=== PATIENT | male | born 1965 | race Caucasian/White ===

== ENCOUNTER 2022-05-06 21:38 | Emergency (ER) | payer OTHER ==
[2022-05-06 22:03] VITALS: BP 135/88; PULSE 90; RESP 20; TEMP 98; BMI 29.7
[2022-05-06] MEDS ORDERED: DIPHTH,PERTUSS(ACELL),TET 0.5 ML DISP.SYRIN IM ONE ×2 (22:03)
[2022-05-06] MEDS ORDERED: CEPHALEXIN MONOHYDRATE 500 MG CAPSULE (UD) PO ONE (22:20)
[2022-05-06] MEDS ORDERED: CEPHALEXIN MONOHYDRATE 500 MG CAPSULE (UD) ONE (22:23)
[2022-05-06] MEDS ORDERED: BACITRACIN ZINC 15 GM TUBE TOPICAL OINTMENT ONE (22:29)
[2022-05-06] MEDS ORDERED: BACITRACIN ZINC 15 GM TUBE TOPICAL OINTMENT TP ONE (22:29)
== END 2022-05-06 22:55 | disposition home or self-care (01) ==
LOC: JERFT 21:38
PROC: 3E0234Z Introduction of Serum, Toxoid and Vaccine into Muscle, Percutaneous Approach (ICD-10-PCS; principal; 2022-05-06)
DX: S67.195A Crushing injury of left ring finger, initial encounter (principal); S61.309A Unspecified open wound of unspecified finger with damage to nail, initial encounter; W23.0XXA Caught, crushed, jammed, or pinched between moving objects, initial encounter
CPT/HCPCS: 73140-TC-LT-FY; 90471; 90715; 99284-25

== ENCOUNTER 2023-04-07 08:11 | Emergency (ER) | payer OTHER ==
[2023-04-07 08:19] VITALS: BP 119/81; PULSE 72; RESP 18; TEMP 97.6; BMI 29.8
[2023-04-07] MEDS ORDERED: ACETAMINOPHEN 325 MG TABLET (FP) ONE (09:51)
[2023-04-07] MEDS: ACETAMINOPHEN 500 MG TABLET (FP) PO ONE (09:58)
[2023-04-07] MEDS: IBUPROFEN 600 MG TABLET (FP) PO ONE (10:38)
[2023-04-07] MEDS ORDERED: IBUPROFEN 600 MG TABLET (FP) PO ONE (10:40)
[2023-04-07 10:48] LABS: PH,URINE 5.5 (5.0-8.0); URINE APPEARANCE CLEAR; URINE BILIRUBIN NEGATIVE (NEGATIVE); URINE COLOR YELLOW; URINE GLUCOSE (UA) NEGATIVE (NEGATIVE); URINE KETONE NEGATIVE (NEGATIVE); URINE LEUK ESTERASE NEGATIVE (NEGATIVE); URINE NITRITE NEGATIVE (NEGATIVE); URINE PROTEIN NEGATIVE (NEGATIVE); URINE UROBILINOGEN 0.2 mg/dL (0.2-1.0)
== END 2023-04-07 11:12 | disposition home or self-care (01) ==
LOC: JER 08:11
DX: R10.31 Right lower quadrant pain (principal)
CPT/HCPCS: 81003; 87086; 99283-25

== ENCOUNTER 2023-06-07 03:01 | Observation (INO) | payer OTHER ==
[2023-06-07] MEDS ORDERED: ACETAMINOPHEN INJECTION 100 ML IVPB ONE (03:33)
[2023-06-07] MEDS: SODIUM CHLORIDE 0.9% 500 ML INFUS.BAG IV ONE (03:52)
[2023-06-07] MEDS: ACETAMINOPHEN 1000 MG/100 ML BAG IVPB ONE (03:52)
[2023-06-07] MEDS: ONDANSETRON 4 MG/2 ML VIAL IVPB ONE (03:53)
[2023-06-07 04:15] LABS: HEMOGLOBIN 14.5 GM/dL (11.7-16.9); MCH 29.7 pg (25.7-33.7); MCHC 33.6 g/dl (32.0-35.9); MEAN CELL VOLUME 88.3 fl (80-96); MEAN PLT VOLUME 9.3 fl (7.5-11.1); PLATELET COUNT 210 10^3/uL (134-434); RBC 4.87 M/mm3 (4.00-5.60); RDW 13.5 % (11.9-15.9); WHITE BLOOD COUNT 20.8 K/mm3 (4.0-10.0)
[2023-06-07 04:16] LABS: VENOUS O2 SATURATION 53.3 % (70-80); VENOUS PCO2 50.3 mmHg (38-52); VENOUS PH 7.312 (7.310-7.410)
[2023-06-07 04:18] LABS: PHENCYCLIDINE,URINE NEGATIVE (NEGATIVE); URINE AMPHETAMINES NEGATIVE (NEGATIVE); URINE BENZODIAZEPINES NEGATIVE (NEGATIVE)
[2023-06-07 04:19] LABS: COCAINE, UR NEGATIVE (NEGATIVE); OPIATES, URI NEGATIVE (NEGATIVE); URINE BARBITURATES NEGATIVE (NEGATIVE)
[2023-06-07 04:21] LABS: METHADONE, UR POSITIVE (NEGATIVE)
[2023-06-07 04:37] LABS: CHLORIDE 106 mmol/L (98-107); POTASSIUM 3.5 mmol/L (3.5-5.1); SODIUM 137 mmol/L (136-145)
[2023-06-07 04:39] LABS: CALCIUM 9.5 mg/dL (8.5-10.1)
[2023-06-07 04:40] LABS: ALBUMIN 3.9 g/dl (3.4-5.0); ANION GAP 4 mmol/L (4-13); BLOOD UREA NITROGEN 18.1 mg/dL (7-18); CO2 28 mmol/L (21-32); GLUCOSE,RANDOM 104 mg/dL (74-106); MAGNESIUM 2.1 mg/dL (1.8-2.4)
[2023-06-07 04:43] LABS: CREATININE 1.1 mg/dL (0.55-1.3); SGOT/AST 9 U/L (15-37); SGPT/ALT 17 U/L (13-61)
[2023-06-07 04:44] LABS: BILIRUBIN,TOTAL 0.4 mg/dL (0.2-1); TOT PROT 6.6 g/dl (6.4-8.2)
[2023-06-07 04:46] LABS: ALK PHOS 89 U/L (45-117)
[2023-06-07 06:19] LABS: ANISOCYTOSIS 2+; MACROCYTOSIS 0
[2023-06-07 08:56] LABS: URINE APPEARANCE CLEAR; URINE BILIRUBIN NEGATIVE (NEGATIVE); URINE COLOR YELLOW; URINE GLUCOSE (UA) 1+ (NEGATIVE); URINE KETONE 3+ (NEGATIVE); URINE LEUK ESTERASE NEGATIVE (NEGATIVE); URINE NITRITE NEGATIVE (NEGATIVE); URINE PROTEIN NEGATIVE (NEGATIVE); URINE UROBILINOGEN 0.2 mg/dL (0.2-1.0)
[2023-06-07] MEDS: SODIUM CHLORIDE 1,000 ML IV SCH (10:52)
[2023-06-07] MEDS: PANTOPRAZOLE SODIUM 40 MG VIAL IVPUSH SCH (10:52)
[2023-06-07] MEDS: ONDANSETRON 4 MG/2 ML VIAL IVPUSH PRN (10:52)
[2023-06-07 12:19] VITALS: BMI 28.4
[2023-06-07 16:41] LABS: BASO % 0.3 % (0-2.0); EOS % 0.4 % (0-4.5); HEMOGLOBIN 14.5 GM/dL (11.7-16.9); LYMPH % 9.1 % (8-40); MCH 30.2 pg (25.7-33.7); MCHC 33.8 g/dl (32.0-35.9); MEAN CELL VOLUME 89.2 fl (80-96); MEAN PLT VOLUME 9.4 fl (7.5-11.1); MONO % 6.9 % (3.8-10.2); NEUT % 83.3 % (42.8-82.8); PLATELET COUNT 236 10^3/uL (134-434); RBC 4.82 M/mm3 (4.00-5.60); RDW 13.4 % (11.9-15.9); WHITE BLOOD COUNT 10.7 K/mm3 (4.0-10.0)
[2023-06-08] MEDS: ACETAMINOPHEN 325 MG TABLET (FP) PO PRN (05:44)
[2023-06-08 11:09] VITALS: BP 132/96; PULSE 66; RESP 24; TEMP 98.1
== END 2023-06-08 10:15 | disposition home or self-care (01) ==
LOC: JER 03:01 → JERBED 07:12 → J4W 10:41
PROVIDERS: ADMIT Internal Medicine; ATTEND Internal Medicine
PROC: 3E033NZ Introduction of Analgesics, Hypnotics, Sedatives into Peripheral Vein, Percutaneous Approach (ICD-10-PCS; principal; 2023-06-07)
PROC: 3E033GC Introduction of Other Therapeutic Substance into Peripheral Vein, Percutaneous Approach (ICD-10-PCS; 2023-06-07)
PROC: 3E0337Z Introduction of Electrolytic and Water Balance Substance into Peripheral Vein, Percutaneous Approach (ICD-10-PCS; 2023-06-07)
DX: T40.3X1A Poisoning by methadone, accidental (unintentional), initial encounter (principal); R77.8 Other specified abnormalities of plasma proteins; I10 Essential (primary) hypertension; R55 Syncope and collapse; F31.9 Bipolar disorder, unspecified
CPT/HCPCS: 36415; 71045-TC-FY; 80053; 80307; 81003; 82803; 83735; 84484; 85025; 87086; 93005; 93010; 99285-25; G0378; J0131